=== PATIENT | male | born 1975 | race African-American/Black ===

== ENCOUNTER 2018-10-28 18:40 | Emergency (ER) | payer SELFPAY ==
--- NOTE | 2018-10-28 19:53 | RAD ---
RIGHT KNEE FOUR VIEWS: 10/28/18 HISTORY: Knee pain status post injury. Patient drug by a horse. There is no signs of fracture, dislocation or joint effusion. IMPRESSION: Negative right knee. POS: CAS
== END 2018-10-28 19:50 | disposition home or self-care (01) ==
LOC: NAV ERS 18:40
DX: S83.411A Sprain of medial collateral ligament of right knee, initial encounter (principal); F17.210 Nicotine dependence, cigarettes, uncomplicated; X50.9XXA Other and unspecified overexertion or strenuous movements or postures, initial encounter

== ENCOUNTER 2019-12-28 12:37 | Emergency (ER) | payer BC, SELFPAY ==
[2019-12-28] MEDS ORDERED: Adacel (T-DAP) 0.5 ML SYRINGE ONE (12:48)
== END 2019-12-28 13:05 | disposition home or self-care (01) ==
LOC: NAV ERS 12:37
DX: S91.332A Puncture wound without foreign body, left foot, initial encounter (principal); F17.210 Nicotine dependence, cigarettes, uncomplicated; Z23 Encounter for immunization; W45.0XXA Nail entering through skin, initial encounter
CPT/HCPCS: 90471; 90715

== ENCOUNTER 2022-02-03 17:38 | Emergency (ER) | payer SELFPAY | END 2022-02-03 18:14 | disposition home or self-care (01) | LOC: NAV ERS 17:38 | DX: S63.501A Unspecified sprain of right wrist, initial encounter (principal); S80.12XA Contusion of left lower leg, initial encounter; F17.210 Nicotine dependence, cigarettes, uncomplicated; X58.XXXA Exposure to other specified factors, initial encounter ==

== ENCOUNTER 2022-06-07 17:33 | Emergency (ER) | payer SELFPAY ==
[2022-06-07] MEDS ORDERED: Ondansetron ODT 4 MG TAB ONE (17:59)
== END 2022-06-07 18:12 | disposition home or self-care (01) ==
LOC: NAV ERS 17:33
DX: K52.9 Noninfective gastroenteritis and colitis, unspecified (principal); F17.210 Nicotine dependence, cigarettes, uncomplicated
CPT/HCPCS: 99283; Q0162

== ENCOUNTER 2022-11-12 16:53 | Emergency (ER) | payer BC | END 2022-11-12 18:56 | disposition home or self-care (01) | LOC: NAV ERS 16:53 | DX: K22.2 Esophageal obstruction (principal); F17.210 Nicotine dependence, cigarettes, uncomplicated | CPT/HCPCS: 70360 ==

== ENCOUNTER 2023-06-14 08:41 | Emergency (ER) | payer BC ==
[2023-06-14] MEDS ORDERED: Ibuprofen 800 MG TAB ONE (09:22)
== END 2023-06-14 09:40 | disposition home or self-care (01) ==
LOC: NAV ERS 08:41
DX: L73.9 Follicular disorder, unspecified (principal); F17.210 Nicotine dependence, cigarettes, uncomplicated
CPT/HCPCS: 99283

== ENCOUNTER 2023-08-02 09:17 | Emergency (ER) | payer BC | END 2023-08-02 10:18 | disposition home or self-care (01) | LOC: NAV ERS 09:17 | DX: L02.415 Cutaneous abscess of right lower limb (principal); F17.210 Nicotine dependence, cigarettes, uncomplicated | CPT/HCPCS: 10060 ==

== ENCOUNTER 2024-01-07 01:32 | Emergency (ER) | payer SELFPAY | END 2024-01-07 02:06 | disposition home or self-care (01) | LOC: NAV ERS 01:32 | DX: T16.2XXA Foreign body in left ear, initial encounter (principal); F17.210 Nicotine dependence, cigarettes, uncomplicated | CPT/HCPCS: 69200; 99282 ==

== ENCOUNTER 2024-02-05 14:46 | Emergency (ER) | payer SELFPAY | END 2024-02-05 15:10 | disposition home or self-care (01) | LOC: NAV ERS 14:46 | DX: T16.2XXA Foreign body in left ear, initial encounter (principal); F17.210 Nicotine dependence, cigarettes, uncomplicated | CPT/HCPCS: 69200; 99282 ==